=== PATIENT | female | born 1990 | race Caucasian/White ===

== ENCOUNTER 2020-03-24 15:01 | Outpatient (CLI) | payer SELFPAY ==
[~2020-03-24] VITALS: Ht 160 cm; Wt 85.5 kg
[2020-03-24 15:20] VITALS: BP 113/72
[2020-03-24] MEDS ORDERED: PREN1TAB60 PO (15:36)
[2020-03-24 18:11] LABS: MICROSCOPIC NOT IND
== END 2020-03-24 19:14 | disposition home or self-care (01) ==
LOC: LDOP 15:01
PROVIDERS: ATTEND Obstetrics & Gynecology
DX: O32.1XX0 Maternal care for breech presentation, not applicable or unspecified (principal); O36.8130 Decreased fetal movements, third trimester, not applicable or unspecified; Z3A.28 28 weeks gestation of pregnancy
CPT/HCPCS: 59025; 76819; 81003; 87086

== ENCOUNTER 2020-05-26 16:50 | Outpatient (CLI) | payer OTHER ==
[~2020-05-26] VITALS: Ht 160 cm; Wt 86.3 kg
[~2020-05-26 16:50] MED LIST: PREN1TAB60 PO
[2020-05-26 17:15] LABS: EOSINOPHILS % (AUTO) 0 % (1-7); LYMPHOCYTES % (AUTO) 16 % (22-44); MONOCYTES % (AUTO) 6 % (2-9); NEUTROPHILS % (AUTO) 77 % (42-75)
[2020-05-26 17:16] LABS: MD NO
[2020-05-26 17:17] VITALS: BP 123/73
[2020-05-26 17:26] LABS: ALANINE AMINOTRANSFERASE 20 U/L (12-78); ANION GAP 8 mmol/L (5-15); CALCIUM 9.3 mg/dL (8.5-10.1); CHLORIDE 103 mmol/L (98-107); CREATININE 0.59 mg/dL (0.55-1.02)
[2020-05-26 17:29] LABS: ALKALINE PHOSPHATASE 100 U/L (45-117); BILIRUBIN,TOTAL 0.3 mg/dL (0.2-1.0); TOTAL PROTEIN 7.1 g/dL (6.4-8.2)
[2020-05-26 17:39] LABS: BASOPHILS % (AUTO) 0 % (0-1); MEAN CORPUSCULAR HEMOGLOBIN 31.2 pg (27.0-34.8); MEAN CORPUSCULAR HGB CONC 34.7 g/dL (32.4-35.8); MEAN PLATELET VOLUME 9.1 fL (7.4-10.4); PLATELET COUNT 235 x10^3/uL (130-400)
[2020-05-26 17:41] LABS: MICROSCOPIC NOT IND
[2020-05-26 17:42] LABS: CREATININE,URINE RANDOM 46.1 mg/dL
== END 2020-05-26 17:58 | disposition home or self-care (01) ==
LOC: LDOP 16:50
PROVIDERS: ATTEND Obstetrics & Gynecology
DX: O32.1XX0 Maternal care for breech presentation, not applicable or unspecified (principal); O16.3 Unspecified maternal hypertension, third trimester; Z3A.37 37 weeks gestation of pregnancy
CPT/HCPCS: 36415; 59025; 80053; 81003; 82570; 84156; 84550; 85025